=== PATIENT | male | born 1990 | race Caucasian/White ===

== ENCOUNTER 2018-11-04 20:32 | Emergency (ER) | payer SELFPAY ==
[2018-11-04 20:36] VITALS: BP 143/79; PULSE 80; RESP 16; TEMP 36.7; O2SAT 97
--- NOTE | 2018-11-04 23:48 | ED.GENADUL_ITS ---
Discharge Plan Disposition Patient Disposition: HOME Condition: Good Discharge Details Chief Complaint: Cellulitis Clinical Impression: Abscess Primary Care Provider: Ousmane Rg ED Provider: Gail Benz Home Meds and New Rx's Prescriptions: New sulfamethoxazole-trimethoprim [Bactrim DS] 800-160 mg tablet 1 tab PO BID Qty: 20 RF: 0 cephalexin [Keflex] 500 mg capsule 500 mg PO QID Qty: 40 RF: 0 No Action ibuprofen 600 MG tablet 600 mg PO Q6H PRNQty: 20 RF: 0 Discharge Instructions Instructions: Abscess (ED) Additional Instructions: Keep initial dressing in place for the next 24 hours then he may remove. Remove wick. Soak finger with warm water and Epsom salts for 5 minutes 3 times daily. Wash with soap and water. Pat dry completely and apply topical antibiotic ointment over the wound. Use antibiotics as prescribed. You can begin these prescriptions tomorrow. Recheck in ER 2 to 3 days if not improving. Return for any alarming symptoms, concerns or worsening as discussed. Specifically for difficulty flexing or extending the thumb, diffuse swelling of the thumb or extension of redness toward the hand. Recheck with PCP if not improving in 1 week Discharge Data Discharge Date/Time-TO BE ENTERED AT DEPARTURE: 11/05/18 00:10 Medical Decision Making Very pleasant 27-year-old man presents with pain to the right thumb. Concern for possible foreign body versus infection. Patient did have bedside ultrasound which did not reveal any obvious foreign body. Patient also admittedly would prefer to have incision and drainage at this time. Digital block of the thumb with appropriate pain relief. Patient's area ultimately prepped with Betadine. Incision made with an 11 blade over area of fluctuant overlying the fat pad of the right thumb. Kellys used to spread the wound. Ultimately purulence expressed, irrigated. Iodoform with place. Stressful incision and drainage of thumb fat pad. Patient provided Rocephin as well as Bactrim. Prescriptions for Keflex and Bactrim provided for home. Wick management discussed. Patient counseled regarding appropriate care and management of his wound as well as return precautions. Patient reports his understanding. HPI General Date/Time Provider Initiated Documentation: 11/04/18 21:08 . HPI Narrative: Patient presents for concern of infection in his thumb versus foreign body. Patient does report a history of having a foreign body in his thumb which ultimately required incision. Patient presents with right thumb pain for the last 2 days now associated with swelling over the fat pad of the thumb. Patient ultimately is concerned for a retained foreign body however has no history of puncture or clear evidence of foreign body. Patient does work with his hands via labor. Patient again denies any specific injury or trauma. Patient's tetanus is up-to-date. Patient denies any ill feeling or fever. Patient does report pain in the thumb extends into the palm. Worse with palpation of the area and range of motion. No significant relief in the last 2 days. No other concerns or complaints. Related Data Home Medications Medication Instructions Recorded Confirmed ibuprofen 600 mg PO Q6H PRN #20 tab 07/23/16 11/04/18 cephalexin [Keflex] 500 mg PO QID #40 cap 11/04/18 sulfamethoxazole-trimethoprim 1 tab PO BID #20 tab 11/04/18 [Bactrim DS] Previous Rx's Medication Instructions Recorded ibuprofen 600 mg PO Q6H PRN #20 tab 07/23/16 cephalexin [Keflex] 500 mg PO QID #40 cap 11/04/18 sulfamethoxazole-trimethoprim 1 tab PO BID #20 tab 11/04/18 [Bactrim DS] Allergies Allergy/AdvReac Type Severity Reaction Status Date / Time amoxicillin [Amoxicillin] Allergy Unverified 11/04/18 20:39 General Stated Complaint: Cellulitis AROLDO: 4 Review of Systems Review of Systems ROS Unobtainable: All systems reviewed & are unremarkable except as noted in HPI and below Musculoskeletal Musculoskeletal: Denies limited range of motion and Denies muscle weakness Integumentary/Breasts Skin/Breast: Reports erythema and Denies wounds REPLACED BY [facility] Social History Smoking/Tobacco Use Status: Current every day Drug use: Never Do you feel safe in your relationship?: Yes Exam Narrative Exam Narrative: CONST: Healthy appearing patient, in no acute distress. Well hydrated. Alert and alert. HENMT: Head nomocephalic, normal to inspection. Atraumatic. Hearing grossly normal. EYES: General normal appearance. Alignment normal. Eyelids normal. Conjunctiva normal. MUSCULOSKELETAL: Normal Gait. No bony pain with palpation through the wrist or hand. Sensation is intact distally. SKIN: Normal. Dry. No rashes. Patient presents with an erythematous mildly blanched area clearly swollen with mild fluctuance to the fat pad of the right thumb. Pain with palpation of the site. Nothing to indicate a Lilian synovitis at this time. Flexion extension intact. Specifically passive extension intact. No associated paronychia NEURO: Alert and awake. Speech clear. PSYCH: Normal affect. Cooperative. Course Vital Signs Vital signs: Vital Signs Temperature 36.7 C 11/04/18 20:36 Pulse 80 11/04/18 20:36 Respiratory Rate 16 11/04/18 20:36 Blood Pressure 143/79 H 11/04/18 20:36 Pulse Oximetry 97 11/04/18 20:36 Temperature 36.7 C 11/04/18 20:36 Pulse 80 11/04/18 20:36 Respiratory Rate 16 11/04/18 20:36 Blood Pressure 143/79 H 11/04/18 20:36 Blood Pressure Position Sitting 11/04/18 20:36 Pulse Oximetry 97 11/04/18 20:36 Oxygen Delivery Method Room Air 11/04/18 20:36 Oxygen Flow Rate 0 11/04/18 20:36 Lab/Test Results Lab/Test Results: 11/04/18 23:45 Thumb - Right Wound Culture - Pending 11/04/18 23:45 Thumb - Right Gram Stain - Pending Procedures Abscess I/D Site: Hand Side (if applicable): Right Local Anesthetic: Bupivicaine 0.5% Amount of anesthesia used (mL): 5 Technique: Incised with #11 Blade Amount of fluid expressed (mL): 1.5 Irrigation: Yes Packing used?: Iodoform
[2018-11-04] MEDS: cefTRIAXone 1 GM VIAL IM (23:57)
[2018-11-04] MEDS: Sulfameth/Trimeth DS TAB 1 TAB PO (23:57)
== END 2018-11-05 00:10 | disposition home or self-care (01) ==
PROVIDERS: Emergency Provider Physician Assistant; PCP Specialist/Technologist Athletic Trainer
DX: L02.511 Cutaneous abscess of right hand (principal)
CPT/HCPCS: 10060; 87077; 99283; 87070; 87186; 87205; J0696

== ENCOUNTER 2023-03-06 18:08 | Emergency (ER) | payer SELFPAY ==
[2023-03-06 18:15] VITALS: BP 143/72; PULSE 90; RESP 18; TEMP 37.4; O2SAT 96
--- NOTE | 2023-03-06 18:36 | ED.GENADUL_ITS ---
HPI General Date/Time Provider Initiated Documentation: 03/06/23 18:34 . HPI Narrative: 32-year-old male presents with left upper molar discomfort. Pain to the left upper face. Related Data Home Medications Medication Instructions Recorded Confirmed ibuprofen 600 mg tablet 600 mg PO Q6H PRN #20 tabs 07/23/16 03/06/23 clindamycin HCl 300 mg capsule 300 mg PO Q8H 5 days #15 caps 03/06/23 Previous Rx's Medication Instructions Recorded ibuprofen 600 mg tablet 600 mg PO Q6H PRN #20 tabs 07/23/16 clindamycin HCl 300 mg capsule 300 mg PO Q8H 5 days #15 caps 03/06/23 Allergies Allergy/AdvReac Type Severity Reaction Status Date / Time amoxicillin [Amoxicillin] Allergy Unverified 03/06/23 18:33 General Stated Complaint: DentalOral AROLDO: 4 Review of Systems Narrative: Physical Examination General: alert, awake, cooperative, resting comfortably, no acute distress HEENT: normocephalic, atraumatic; PERRL, EOM intact, conjunctiva normal; no nasal discharge; moist mucous membranes, oral and pharyngeal mucosa normal, tolerating secretions; chronically fractured carious left upper molar 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 root, no appreciable periapical abscess Neck: supple, trachea midline; full ROM Chest: normal to inspection Respiratory: normal respiratory effort, speaking in full sentences Skin: no lesions, rashes or trauma appreciated Neuro: AAOx3, normal speech, moving all extremities Course Vital Signs Vital signs: Vital Signs Temperature 37.4 C 03/06/23 18:15 Pulse 90 03/06/23 18:15 Respiratory Rate 18 03/06/23 18:15 Blood Pressure 143/72 H 03/06/23 18:15 Pulse Oximetry 96 03/06/23 18:15 Temperature 37.4 C 03/06/23 18:15 Temperature Source Temporal Artery Scan 03/06/23 18:15 Pulse 90 03/06/23 18:15 Respiratory Rate 18 03/06/23 18:15 Respiratory Effort Normal 03/06/23 18:19 Blood Pressure 143/72 H 03/06/23 18:15 Blood Pressure Position Sitting 03/06/23 18:15 Pulse Oximetry 96 03/06/23 18:15 Oxygen Delivery Method Room Air 03/06/23 18:15 Oxygen Flow Rate 0 03/06/23 18:15 Pain Level 6 03/06/23 18:15 Medical Decision Making 32-year-old male presents with left upper molar dental pain, chronically carious partially fractured left upper molar 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 root, no periapical abscess, no sign of deep space infection of head or neck. Afebrile nontoxic. Normal voice tolerating secretions. Will place on clindamycin p.o. as well as dose of Toradol here in department. Will send remaining prescription to pharmacy. Home care instructions and return precautions given for any worsening symptoms Quality:SDOH Health Related Social Needs: No Data to Display PFSH All Active Problems (Updated 03/06/23 @ 18:39 by Guanakito Nelson MD) Pain, dental (Acute) Social History Smoking/Tobacco Use Status: Current every day Tobacco Type: cigarettes Smoking risk assessment performed?: Yes Alcohol Intake: never Drug use: Never Substance use type: marijuana Housing: house Do you feel safe in your relationship?: Yes Discharge Plan Disposition Patient Disposition: Home Condition: Stable Discharge Details Clinical Impression: Pain, dental Primary Care Provider: Ousmane Rg ED Provider: Guanakito Nelson Home Meds and New Rx's Prescriptions: New clindamycin HCl 300 mg capsule 300 mg PO Q8H 5 Days Qty: 15 0RF No Action ibuprofen 600 MG tablet 600 mg PO Q6H PRNQty: 20 0RF Discharge Instructions Instructions: Toothache (ED) Additional Instructions: Please take medication as prescribed. Please return to the emergency room for any worsening symptoms. Please attempt to seek dental follow-up
[2023-03-06] MEDS: Ketorolac 10 MG TAB PO (18:42)
[2023-03-06] MEDS: Clindamycin 150 MG CAP 450 MG PO (18:42)
[2023-03-06 21:51] VITALS: BP 143/72; PULSE 90; RESP 18; TEMP 37.4; O2SAT 96
== END 2023-03-06 18:47 | disposition home or self-care (01) ==
PROVIDERS: Emergency Provider Emergency Medicine
DX: K08.89 Other specified disorders of teeth and supporting structures (principal); S02.5XXA Fracture of tooth (traumatic), initial encounter for closed fracture; F17.210 Nicotine dependence, cigarettes, uncomplicated; X58.XXXA Exposure to other specified factors, initial encounter
CPT/HCPCS: 99283

== ENCOUNTER 2023-04-16 20:23 | Emergency (ER) | payer SELFPAY ==
[2023-04-16 20:26] VITALS: BP 176/71; PULSE 103; RESP 18; TEMP 37.4; O2SAT 99
--- NOTE | 2023-04-16 20:26 | ED.GENADUL_ITS ---
Discharge Plan Disposition Patient Disposition: Home Condition: Good Discharge Details Clinical Impression: Subcutaneous nodule of right thumb ED Provider: Tim Goldsmith [place] Meds and New Rx's Prescriptions: Changed ibuprofen 600 MG tablet 600 mg PO Q8H Qty: 15 0RF Discharge Instructions Additional Instructions: You were seen for a small nodule that does seem to be associated with the extensor tendon of your thumb. Recommend taking ibuprofen 3 times a day over the next few days, ice and wear splint. If no significant improvement, worsening symptoms should follow-up with orthopedics in 1 to 2 weeks. Return to ED for fever, redness, warmth which would suggest infection. HPI General Mode of arrival: ambulatory . Date/Time Provider Initiated Documentation: 04/16/23 20:26 . Limitations to Documentation: no limitations . Information obtained by: patient . HPI Narrative: Patient presents to ED with swelling and tenderness to the back of his right hand. Noticed this a couple of days ago. There is no redness and no fever. 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 Has difficulty flexing and extending his thumb because of pain. Related Data Home Medications Medication Instructions Recorded Confirmed ibuprofen 600 mg tablet 600 mg PO Q8H #15 tabs 04/16/23 Previous Rx's Medication Instructions Recorded ibuprofen 600 mg tablet 600 mg PO Q8H #15 tabs 04/16/23 Allergies Allergy/AdvReac Type Severity Reaction Status Date / Time amoxicillin [Amoxicillin] Allergy Anaphylaxis Unverified 04/16/23 20:29 General RAOLDO: 4 Review of Systems Narrative: Per HPI Exam Narrative Exam Narrative: Const: WDWN male in NAD. HEENT: NC/AT. Normal facial exam. Eyes: Normal conjunctiva and sclera. Neck: Supple. Trachea midline. Lungs: Normal respiratory effort. Neuro: A+O x 3. Normal speech, mentation, gait. Cranial nerves II - XII grossly intact. No gross motor or sensory deficit. Ext: No C/C/E. Right hand with pea-sized tender nodule at the base of the right thumb dorsal aspect. Seems to be along the tendon sheath. Has good flexion and extension though it causes pain. Hand and wrist otherwise normal. Medical Decision Making Patient presenting with 2 to 3-day history of pea-sized nodule which is tender to touch but not erythematous, warm. No signs of infection. Seems to be a ssociated with the extensor tendon of the thumb and not a ganglion cyst. Will place in a thumb spica splint for comfort. Ice and ibuprofen for the next few days. If no improvement over the next couple of weeks follow-up with ortho. Quality:SDOH Health Related Social Needs: No Data to Display PFSH All Active Problems (Updated 04/16/23 @ 20:48 by Tim Goldsmith MD) Subcutaneous nodule of right thumb (Acute) Social History Smoking/Tobacco Use Status: Current every day Tobacco Type: cigarettes Smoking risk assessment performed?: Yes Alcohol Intake: never Drug use: Never Substance use type: marijuana Housing: house Do you feel safe in your relationship?: Yes
[2023-04-16] MEDS: Ibuprofen 600 MG TAB PO (20:50)
== END 2023-04-16 20:53 | disposition home or self-care (01) ==
LOC: ER 21:07
PROVIDERS: Emergency Provider Emergency Medicine
DX: R22.31 Localized swelling, mass and lump, right upper limb (principal); F17.210 Nicotine dependence, cigarettes, uncomplicated
CPT/HCPCS: 29125; 99283